=== PATIENT | female | born 1970 | race African-American/Black ===

== ENCOUNTER 2017-03-24 09:02 | Day surgery (SDC) | payer BC, OTHER ==
[2017-03-22 16:42] VITALS: BMI 34.4
[2017-03-24 09:41] LABS: BASO % 0.1 % (0-2.0); EOS % 0.3 % (0-4.5); HEMATOCRIT 33.6 % (32.4-45.2); HEMOGLOBIN 10.5 GM/dL (10.7-15.3); MCH 23.8 pg (25.7-33.7); MCHC 31.2 g/dl (32.0-36.0); MEAN CELL VOLUME 76.3 fl (80-96); MEAN PLT VOLUME 6.7 fl (7.5-11.1); MONO % 6.2 % (3.8-10.2); NEUT % 74.4 % (42.8-82.8); PLATELET COUNT 483 K/MM3 (134-434); RDW 18.5 % (11.6-15.6); WHITE BLOOD COUNT 14.4 K/mm3 (4.0-10.0)
[2017-03-24 10:20] LABS: INR 1.21 (0.82-1.09); PROTHROMBIN TIME (PATIENT) 13.7 SEC (9.98-11.88)
[2017-03-24 15:50] VITALS: TEMP 98.6
[2017-03-24 16:14] VITALS: BP 133/76; PULSE 87
--- NOTE | 2017-03-29 14:12 | PATH ---
Surgical Pathology Report Patient Name: EUN CALVERT [facility]. Rec. #: [id number] /Age/Gender: 1970 (Age: 47) / F Account: [id number] Location: RADIOLOGY Taken: 03/24/2017 Received: 03/24/2017 Reported: 03/29/2017 Physicians: MD Christiano Mckeon M.D. Specimen(s) Received LUNG BIOPSY Clinical History 47-year-old female with ?? bilateral lung nodules likely metastases Patient has large uterine fibroids versus leiomyoma?? Final Diagnosis LUNG, BIOPSY: MALIGNANT SPINDLE CELL NEOPLASM. SEE COMMENT. Comment: Findings show a spindle cell neoplasm with nuclear pleomorphism and discrete mitosis. Immunohistochemical stains performed and interpreted at [facility] show S100 have patchy weak staining, while negative for CK7, p63, and synaptophysin. Additional immunohistochemical stains performed at [place], [place] ([id number]) and interpreted at [facility] show the neoplasm is positive for SMA (strong), patchy weak positivity for CD10, while negative for pax-8, sox-10 and desmin. 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 Given the clinical history of uterine mass and multiple lung nodules, differential diagnosis include metastasis from a uterine mesenchymal neoplasm. Suggest clinical/radiologic correlation. Case seen interdepartmentally. Findings discussed with Dr. Sanabria. Electronically Signed Sunitha Patiño M.D. Gross Description Received in formalin labeled "right lung biopsy," are 2 garcia, cylindrical portions of soft tissue measuring 0.9 and 1.2 cm in length and averaging 0.1 cm in diameter. The specimens are submitted in toto in one cassette. /03/24/2017 saudi03/24/2017
== END 2017-03-24 16:30 | disposition home or self-care (01) ==
LOC: JRADIR 09:02
PROVIDERS: ATTEND Obstetrics & Gynecology Gynecologic Oncology
PROC: 0BBF3ZX Excision of Right Lower Lung Lobe, Percutaneous Approach, Diagnostic (ICD-10-PCS; principal; 2017-03-24)
DX: C78.01 Secondary malignant neoplasm of right lung (principal)
CPT/HCPCS: 32405; 36415; 71045-TC; 84703; 85025; 85610; 88305-TC; 88341-TC; 88342-TC